=== PATIENT | male | born 2000 | race Caucasian/White ===

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

== ENCOUNTER 2020-03-05 09:30 | Emergency (ER) | payer MEDICAID, SELFPAY ==
[2020-03-05 09:30] VITALS: BP 142/86; PULSE 95; RESP 16; TEMP 36.2; O2SAT 97; BMI 39.6
--- NOTE | 2020-03-05 09:48 | ED.VIS.GEN ---
History of Present Illness Chief Complaint: Chest Pain Informant: Patient Narrative: Patient states for the past 1 week he has had a very bad sore throat. No fevers. The past 24 hours she developed cough and shortness of breath. Is progressively worsened. No diarrhea or vomiting. No rashes. History of exercise-induced asthma but has not required any treatment for a prolonged period of time. - Past Medical History (1) Exercise-induced asthma Status: Acute Past Medical History - Allergies and Home Meds Allergies/Adverse Reactions: Allergies clindamycin Allergy (Verified 03/05/20 09:32) Swelling Primary Care Physician: Julio Cheema MD [Primary Care Provider] - Prior records reviewed: Yes Surgical History: noncontributory Smoking Status: Never smoker - Patient vapes Drugs: None Review of Systems General: Reports: Chills, Malaise. Denies: Fever, Sweats Eyes: Denies: Visual changes - bilaterally, Diplopia ENT: Reports: Sore throat. Denies: Rhinorrhea Cardiovascular: Denies: Chest pain, Palpitations Respiratory: Reports: Dyspnea, Cough, Sputum, Dyspnea on exertion Gastrointestinal: Denies: Abdominal pain, Nausea, Vomiting, Diarrhea, Melena, Hematochezia Genitourinary: Denies: Dysuria, Hematuria, Frequency Musculoskeletal: Denies: Back pain, Extremity Pain Skin: Denies: Rash, Wounds Neurological: Denies: Headache, Weakness, Numbness Physical Exam Vital Signs/Narrative: Vital Signs Temp Pulse Resp BP Pulse Ox 03/05/20 09:30 97.1 F L 95 16 142/86 H 97 Inital Vital Signs reviewed: Yes General: Well nourished, Well developed, No Acute Distress Head: Normocephalic, Atraumatic Eyes: Perrl, EOMI ENT: Moist mucous membranes, No rhinorrhea, - - Mild pharyngeal erythema without evidence of abscess Neck: Supple, Nontender Cardiovascular: Regular rate, Regular rhythm, No murmurs Respiratory: No distress, CTA bilaterally, Chest nontender, Wheezing - Faint expiratory wheeze that improves with cough Abdomen: Soft, Nontender, Nondistended, Normal bowel sounds Back: Nontender, Normal Inspection Extremities: Nontender, No edema Skin: Normal color, No rash Neurological: Alert, Oriented x3, Cranial nerves II-XII grossly intact, Normal Strength, Normal Sensation Psychological: Normal affect, Normal Mood Diagnostic/Tx/Re-eval - Medical Decision Making Chest x-ray appears without infiltrate or effusion. Poor inspiratory effort. Patient will be swabbed for COVID results available in a couple days. I placed him on albuterol MDI short course of prednisone and azithromycin. ED Disposition - Plan for ED Patient: Disposition: Home or Assisted Living Diagnosis: Pharyngitis, Bronchitis with bronchospasm Instructions: ED Bronchitis Asthmatic Prescriptions: Prednisone [Deltasone] 60 mg PO DAILY #15 tab Prescription Printed Albuterol Inhaler [Ventolin Hfa] 2 puff INHALATION Q4H PRN PRN #1 inhaler PRN Reason: Wheezing Prescription Printed Azithromycin [Zithromax Z-Tushar] 250 mg PO UD #1 box Prescription Printed Referrals: Julio Cheema MD [Primary Care Provider] - As Needed
--- NOTE | 2020-03-05 10:10 | RAD_ITS ---
STUDY: X-RAY CHEST REASON FOR EXAM: Male, 20 years old. Shortness of breath, chest pain, chills, cough TECHNIQUE: Single AP portable view of the chest. COMPARISON: Comparison is made with prior study dated 11/08/2014. FINDINGS: The lungs are clear and expanded. There is no demonstrated pleural abnormality. There is borderline cardiomegaly. Normal mediastinum and betty. Normal visualized pulmonary arteries. Normal visualized aortic arch and descending thoracic aorta. Normal visualized thoracic spine. Normal visualized ribs, clavicles, and shoulders. There is no demonstrated abnormality of the visualized soft tissue structures of the upper abdomen. RAD/Chest 1 View (Portable) IMPRESSION: Borderline cardiomegaly. Electronically Signed: Pipo Cardoza, at 11:06 EDT , Service support ,
[2020-03-05 10:28] VITALS: BP 142/86; PULSE 95; RESP 16; TEMP 36.2; O2SAT 97
[2020-03-05 11:11] VITALS: BP 122/57; PULSE 61; RESP 15; TEMP 36.4; O2SAT 98
== END 2020-03-05 11:16 | disposition home or self-care (01) ==
LOC: ED 10:46
PROVIDERS: Emergency Provider Emergency Medicine; PCP Pediatrics
DX: J02.9 Acute pharyngitis, unspecified (principal); J40 Bronchitis, not specified as acute or chronic
CPT/HCPCS: 71045; 87635; 99283; A4216; U0003